=== PATIENT | male | born 1980 | race Caucasian/White ===

== ENCOUNTER 2018-10-05 20:08 | Inpatient (IN) | payer MEDICAID ==
[2018-10-05 21:34] LABS: ADD MAN DIFF? NO
[2018-10-05] MEDS: KETOROLAC 15 MG INJ IV (21:35)
[2018-10-05] MEDS: SOD CHLORIDE 0.9% 1,000 ML IV (21:35)
[2018-10-05] MEDS: PIPER-TAZO 3.375 GM IV (PMX) 100 ML IVPB (21:35)
[2018-10-05 21:37] LABS: BASOPHILS % 0.3 % (0.0-2.0); EOSINOPHILS # 0.2 10^3/ul (0.0-0.5); EOSINOPHILS % 2.9 % (0.0-7.0); HEMATOCRIT 33.3 % (42.0-52.0); HEMOGLOBIN 11.5 g/dl (14.0-18.0); LYMPHOCYTES # 1.9 10^3/ul (0.8-2.9); LYMPHOCYTES % 26.9 % (15.0-51.0); MEAN CORPUSCULAR HEMOGLOBIN 29.3 pg (29.0-33.0); MEAN CORPUSCULAR HGB CONC 34.5 g/dl (32.0-37.0); MEAN CORPUSCULAR VOLUME 84.9 fl (82.0-101.0); MONOCYTE # 0.8 10^3/ul (0.3-0.9); MONOCYTES % 10.9 % (0.0-11.0); NEUTROPHIL # 4.1 10^3/ul (1.6-7.5); NEUTROPHILS % 58.9 % (39.0-77.0); PLATELET COUNT 179 10^3/UL (140-415); RED BLOOD COUNT 3.92 10^6/ul (4.70-6.10); RED CELL DISTRIBUTION WIDTH 13.1 % (11.5-14.5)
[2018-10-05 21:58] LABS: ALANINE AMINOTRANSFERASE 180 IU/L (13-69); ALBUMIN 3.4 g/dl (3.3-4.9); ALBUMIN/GLOBULIN RATIO 1.17; ALKALINE PHOSPHATASE 57 IU/L (42-121); ANION GAP 6 (5-13); ASPARTATE AMINO TRANSFERASE 500 IU/L (15-46); BILIRUBIN,INDIRECT 0.5 mg/dl (0-1.1); BILIRUBIN,TOTAL 0.5 mg/dl (0.2-1.3); BLOOD UREA NITROGEN 19 mg/dl (7-20); CALCIUM 7.9 mg/dl (8.4-10.2); CARBON DIOXIDE 29 mmol/L (21-31); CHLORIDE 105 mmol/L (97-110); CREATININE 0.83 mg/dl (0.61-1.24); Estimated GFR > 60 mL/min (>60); GLUCOSE 125 mg/dl (70-220); POTASSIUM 3.4 mmol/L (3.5-5.1); SODIUM 140 mmol/L (135-144); TOTAL PROTEIN 6.3 g/dl (6.1-8.1)
[2018-10-05] MEDS: IOHEXOL 300MG/ML 150 ML BTL (22:18)
[2018-10-05] MEDS: SOD CHLORIDE 0.9% 100 ML (22:18)
[2018-10-05] MEDS: VANCOMYCIN 1 GM (PMX) 250 ML IVPB (22:23)
[2018-10-06] MEDS ORDERED: DOCUSATE SODIUM 100 MG CAP PO (01:00)
[2018-10-06] MEDS ORDERED: ONDANSETRON 4 MG INJ IV (01:00)
[2018-10-06] MEDS ORDERED: BISACODYL (EC) 5 MG TAB PO (01:00)
[2018-10-06] MEDS ORDERED: VANCOMYCIN IV PER PHARMACY XX (01:00)
[2018-10-06] MEDS ORDERED: NACL 0.9% 3 ML SYG IV (01:00)
[2018-10-06 01:41] LABS: ETHANOL < 10.0 mg/dl (0-0)
[2018-10-06 05:33] LABS: HAAIG REFLEX REFLEX FILED
[2018-10-06] MEDS: VANCOMYCIN 1 GM 250 ML IVPB ×3 (05:52→21:37)
[2018-10-06 07:00] LABS: HEPATITIS B SURFACE ANTIBODY POSITIVE (NEGATIVE)
[2018-10-06 07:15] LABS: HEPATITIS B SURFACE ANTIGEN NEGATIVE (NEGATIVE)
[2018-10-06 07:32] LABS: HEPATITIS B CORE ANTIBODY NEGATIVE (NEGATIVE); HEPATITIS C VIRAL ANTIBODY NEGATIVE (NEGATIVE)
[2018-10-06] MEDS: HYDROCODONE/APAP (5/325) TAB PO ×3 (09:09→21:36)
[2018-10-06] MEDS: ACETAMINOPHEN 325 MG TAB PO (11:45)
[2018-10-07] MEDS: HYDROCODONE/APAP (5/325) TAB PO ×3 (04:37→17:57)
[2018-10-07 05:33] LABS: ADD MAN DIFF? NO
[2018-10-07 05:37] LABS: BASOPHILS % 0.2 % (0.0-2.0); EOSINOPHILS # 0.2 10^3/ul (0.0-0.5); EOSINOPHILS % 3.7 % (0.0-7.0); HEMATOCRIT 35.4 % (42.0-52.0); HEMOGLOBIN 12.1 g/dl (14.0-18.0); LYMPHOCYTES # 1.9 10^3/ul (0.8-2.9); LYMPHOCYTES % 34.1 % (15.0-51.0); MEAN CORPUSCULAR HEMOGLOBIN 29.4 pg (29.0-33.0); MEAN CORPUSCULAR HGB CONC 34.2 g/dl (32.0-37.0); MEAN CORPUSCULAR VOLUME 86.1 fl (82.0-101.0); MEAN PLATELET VOLUME 10.1 fl (7.4-10.4); MONOCYTE # 0.5 10^3/ul (0.3-0.9); MONOCYTES % 8.1 % (0.0-11.0); NEUTROPHILS % 53.7 % (39.0-77.0); PLATELET COUNT 201 10^3/UL (140-415); RED BLOOD COUNT 4.11 10^6/ul (4.70-6.10); RED CELL DISTRIBUTION WIDTH 13.2 % (11.5-14.5)
[2018-10-07 05:37] LABS: WHITE BLOOD COUNT 5.7 10^3/ul (4.8-10.8)
[2018-10-07 06:13] LABS: ALANINE AMINOTRANSFERASE 128 IU/L (13-69); ALBUMIN 3.2 g/dl (3.3-4.9); ALBUMIN/GLOBULIN RATIO 1.14; ALKALINE PHOSPHATASE 54 IU/L (42-121); ANION GAP 7 (5-13); ASPARTATE AMINO TRANSFERASE 174 IU/L (15-46); BILIRUBIN,INDIRECT 0.5 mg/dl (0-1.1); BILIRUBIN,TOTAL 0.5 mg/dl (0.2-1.3); BLOOD UREA NITROGEN 9 mg/dl (7-20); CALCIUM 8.1 mg/dl (8.4-10.2); CARBON DIOXIDE 26 mmol/L (21-31); CHLORIDE 107 mmol/L (97-110); CHOL/HDL RATIO 5.5 RATIO; CHOLESTEROL 150 mg/dl (100-200); CREATININE 0.61 mg/dl (0.61-1.24); Estimated GFR > 60 mL/min (>60); GLUCOSE 97 mg/dl (70-220); HDL CHOLESTEROL 27 mg/dl (28-63); LDL CHOLESTEROL,CALCULATED 98 mg/dl; MAGNESIUM 1.9 mg/dl (1.7-2.5); POTASSIUM 3.6 mmol/L (3.5-5.1); SODIUM 140 mmol/L (135-144); TRIGLYCERIDES 126 mg/dl (0-149)
[2018-10-07 06:21] LABS: VANCOMYCIN,TROUGH 8.3 ug/ml (10.0-20.0)
[2018-10-07] MEDS: VANCOMYCIN 1 GM 250 ML IVPB (06:35)
[2018-10-07 07:06] LABS: AMPHETAMINE/METHAMPHETAMINE NEGATIVE (NEGATIVE); BARBITURATES NEGATIVE (NEGATIVE); BENZODIAZEPINES NEGATIVE (NEGATIVE); CANNABINOIDS NEGATIVE (NEGATIVE); COCAINE NEGATIVE (NEGATIVE)
[2018-10-07 07:07] LABS: OPIATES POSITIVE (NEGATIVE)
[2018-10-07] MEDS: VANCOMYCIN HCL 1.25 GM in SOD CHLORIDE 0.9% 250 ML IVPB ×2 (14:13→22:11)
[2018-10-07] MEDS: ACETAMINOPHEN 325 MG TAB PO (17:02)
[2018-10-08] MEDS: SILVER SULFADIAZINE 1% 25 GM CR TOP ×4 (00:15→21:00)
[2018-10-08] MEDS: HYDROCODONE/APAP (5/325) TAB PO ×3 (00:22→14:54)
[2018-10-08] MEDS ORDERED: SILVER SULFADIAZINE 1% 25 GM CR TOP (00:30)
[2018-10-08] MEDS: VANCOMYCIN HCL 1.25 GM in SOD CHLORIDE 0.9% 250 ML IVPB ×3 (05:36→22:28)
[2018-10-08] MEDS: ACETAMINOPHEN 325 MG TAB PO ×3 (05:36→19:54)
[2018-10-08 22:21] LABS: VANCOMYCIN,TROUGH 12.3 ug/ml (10.0-20.0)
[2018-10-09] MEDS ORDERED: CLINDAMYCIN 300 MG CAP PO
[2018-10-09] MEDS: HYDROCODONE/APAP (5/325) TAB PO (05:23)
[2018-10-09] MEDS: VANCOMYCIN HCL 1.25 GM in SOD CHLORIDE 0.9% 250 ML IVPB (05:24)
[2018-10-09] MEDS: SILVER SULFADIAZINE 1% 25 GM CR TOP (12:01)
[2018-10-10 16:41] LABS: HEPATITIS B DELTA ANTIBODY NEGATIVE
== END 2018-10-09 12:20 | disposition home or self-care (01) | DRG 603 ==
LOC: 2NE 23:35 → FTE 20:08
DX: L03.317 Cellulitis of buttock (principal); D64.9 Anemia, unspecified; Z59.0 Homelessness; R74.0 Nonspecific elevation of levels of transaminase and lactic acid dehydrogenase [LDH]
CPT/HCPCS: 36415; 72193; 76705; 80053; 80061; 80202; 80307; 83036; 83735; 84443; 85025; 86692; 86704; 86706; 86709; 86803; 87040-91; 87070; 87081; 87340; 96374; 96375; 99285-25

== ENCOUNTER 2018-10-20 20:16 | Emergency (ER) | payer SELFPAY, MEDICAID ==
[2018-10-20] MEDS: KETOROLAC 30 MG INJ IM (23:12)
== END 2018-10-20 23:15 | disposition home or self-care (01) ==
LOC: FTE 20:16
DX: Z48.01 Encounter for change or removal of surgical wound dressing (principal); R19.7 Diarrhea, unspecified
CPT/HCPCS: 96372; 99284-25

== ENCOUNTER 2018-11-09 17:06 | Emergency (ER) | payer MEDICAID | END 2018-11-09 17:56 | disposition home or self-care (01) | LOC: FTE 17:06 | DX: R19.7 Diarrhea, unspecified (principal) | CPT/HCPCS: 87075; 99283; Z7502 ==

== ENCOUNTER 2018-12-04 14:23 | Emergency (ER) | payer MEDICAID | END 2018-12-04 15:04 | disposition home or self-care (01) | LOC: E/R 14:23 | DX: M79.605 Pain in left leg (principal); M79.604 Pain in right leg | CPT/HCPCS: 99283; Z7502 ==